=== PATIENT | female | born 1990 | race Caucasian/White ===

== ENCOUNTER 2018-08-21 19:49 | Emergency (ER) | payer OTHER ==
[~2018-08-21] VITALS: Ht 180.3 cm; Wt 90.7 kg
[2018-08-21 19:54] VITALS: BP 140/92
--- NOTE | 2018-08-21 19:57 | NUR ---
PT AMBULATED TO BED 7. PROVIDED WITH URINE CUP.
--- NOTE | 2018-08-21 20:00 | NUR ---
C/O MENSTRUAL CUP STUCK IN VAGINA X1 DAY. PT DENIES PAIN/FEVER/N/V/D.
--- NOTE | 2018-08-21 20:26 | NUR ---
DR. MURCIA EVALUATING PT BEDSIDE
--- NOTE | 2018-08-21 20:41 | NUR ---
PT PREPPED FOR PELVIC EXAM, DR. MURCIA AWARE.
--- NOTE | 2018-08-21 20:45 | NUR ---
Female Watch Mechanic accompanied female patient for Pelvic Exam with Dr. Valdez
[2018-08-21 21:05] VITALS: BP 130/92
--- NOTE | 2018-08-21 21:08 | NUR ---
Patient discharged with v/s stable. Written and verbal after care instructions given and explained. Patient verbalized understanding. Ambulatory with steady gait. All questions addressed prior to discharge. Advised to follow up with PMD.
== END 2018-08-21 21:08 | disposition home or self-care (01) ==
LOC: MED 19:49
DX: T19.2XXA Foreign body in vulva and vagina, initial encounter (principal); F41.9 Anxiety disorder, unspecified; X58.XXXA Exposure to other specified factors, initial encounter; Y93.89 Activity, other specified; Y92.89 Other specified places as the place of occurrence of the external cause; Y99.8 Other external cause status
CPT/HCPCS: 99284